=== PATIENT | male | born 1945 | race Caucasian/White ===

== ENCOUNTER 2019-10-05 10:05 | Outpatient (CLI) | payer MEDICARE, SELFPAY ==
[2019-10-05 11:22] LABS: Alanine Aminotransferase 17 U/L (4-50); Albumin Level 4.3 g/dL (3.5-5.1); Alkaline Phosphatase 82 U/L (38-126); Aspartate Amino Transferase 27 U/L (17-59); Bilirubin,Total 0.6 mg/dL (0.2-1.3); Blood Urea Nitrogen 13 mg/dL (9-20); Calcium 9.5 mg/dL (8.4-10.2); Carbon Dioxide 29 mmol/L (22-30); Chloride 100 mmol/L (98-107); Estimated Glomerular Filt Rate > 60; Glucose 97 mg/dL (75-110); Potassium 4.2 mmol/L (3.4-5.0); Sodium 140 mmol/L (137-145)
[2019-10-05 11:53] LABS: Prostate Specific Antigen 1.5 ng/mL (< OR = 4.0)
== END 2019-10-05 10:06 | disposition home or self-care (01) ==
PROVIDERS: PCP Internal Medicine; Visit Provider Internal Medicine
DX: Z12.5 Encounter for screening for malignant neoplasm of prostate (principal); Z13.0 Encounter for screening for diseases of the blood and blood-forming organs and certain disorders involving the immune mechanism; Z13.21 Encounter for screening for nutritional disorder; Z13.228 Encounter for screening for other metabolic disorders; Z13.29 Encounter for screening for other suspected endocrine disorder
CPT/HCPCS: 36415; 80053; 84153; G0103

== ENCOUNTER 2021-02-26 08:28 | Outpatient (CLI) | payer MEDICARE, SELFPAY ==
[2021-02-26 08:59] LABS: Basophils Percent Auto 0.4 % (0.2-1.2); Eosinophils Absolute Auto 0.1 K/mm3 (0-0.3); Hematocrit 39.2 % (42.0-52.0); Immature Platelet Fraction Pct 2.8 % (0.9-11.2); Lymphocytes Percent Auto 35.7 % (18.3-44.2); Mean Corpuscular HGB Conc 33.2 g/dl (32-36); Mean Corpuscular Hemoglobin 32.2 pg (26-34); Monocytes Absolute Auto 0.5 K/mm3 (0.1-0.6); Monocytes Percent Auto 10.1 % (2.6-8.5); Neutrophils Absolute Auto 2.7 K/mm3 (1.3-6.7); Neutrophils Percent Auto 52.8 % (45.5-73.1); Platelet Count Result 124 k/mm3 (150-375); Red Blood Count 4.04 M/mm3 (4.6-6.20); Red Cell Distribution Width 12.9 % (11.5-14.5)
[2021-02-26 09:21] LABS: Alanine Aminotransferase 13 U/L (4-50); Alkaline Phosphatase 77 U/L (38-126); Anion Gap 8 mmol/L (8-16); Aspartate Amino Transferase 27 U/L (17-59); Bilirubin,Total 0.6 mg/dL (0.2-1.3); Blood Urea Nitrogen 14 mg/dL (9-20); Calcium 9.4 mg/dL (8.4-10.2); Carbon Dioxide 27 mmol/L (22-30); Chloride 104 mmol/L (98-107); Cholesterol 154 mg/dL (0-200); Estimated Glomerular Filt Rate 59; Glucose 99 mg/dL (75-110); HDL Direct 52 mg/dL; Sodium 139 mmol/L (137-145); Triglycerides 85 mg/dL (<150)
[2021-02-26 09:31] LABS: LDL Cholesterol Direct 64 mg/dL
[2021-02-26 09:49] LABS: Prostate Specific Antigen 1.3 ng/mL (< OR = 4.0)
== END 2021-02-26 08:29 | disposition home or self-care (01) ==
LOC: ANHLAB 08:30
PROVIDERS: PCP Internal Medicine; Visit Provider Clinical Nurse Specialist
DX: I10 Essential (primary) hypertension (principal); Z13.220 Encounter for screening for lipoid disorders; Z12.5 Encounter for screening for malignant neoplasm of prostate
CPT/HCPCS: 36415; 80053; 80061; 84153; 85025; 85055; G0103

== ENCOUNTER 2021-03-06 08:39 | Outpatient (CLI) | payer MEDICARE, SELFPAY ==
[2021-03-06 08:55] LABS: Basophils Percent Auto 0.3 % (0.2-1.2); Eosinophils Absolute Auto 0.1 K/mm3 (0-0.3); Immature Granulocyte Absolute 0.01 K/mm3 (0.00-0.031); Immature Granulocyte Percent A 0.2 % (0-0.5); Lymphocytes Absolute Auto 1.76 K/mm3 (0.9-3.2); Lymphocytes Percent Auto 28.1 % (18.3-44.2); Mean Corpuscular HGB Conc 33.3 g/dl (32-36); Mean Corpuscular Hemoglobin 32.5 pg (26-34); Mean Corpuscular Volume 97.5 fl (80-100); Mean Platelet Volume 9.6 fl (7.4-10.4); Monocytes Absolute Auto 0.5 K/mm3 (0.1-0.6); Monocytes Percent Auto 7.5 % (2.6-8.5); Neutrophils Percent Auto 62.9 % (45.5-73.1); Platelet Count Result 116 k/mm3 (150-375); White Blood Count 6.3 K/mm3 (4.5-10.0)
[2021-03-06 09:32] LABS: Iron 77 ug/dL (49-181)
[2021-03-06 09:41] LABS: Percent Iron Saturation 27 % (20-50)
== END 2021-03-06 08:40 | disposition home or self-care (01) ==
LOC: ANHLAB 08:41
PROVIDERS: PCP Internal Medicine; Visit Provider Clinical Nurse Specialist
DX: D64.9 Anemia, unspecified (principal)
CPT/HCPCS: 36415; 82728; 83540; 83550; 85025

== ENCOUNTER 2021-04-21 07:34 | Outpatient (CLI) | payer MEDICARE, SELFPAY ==
--- NOTE | ~2021-04-21 | US_ITS ---
EXAMINATION: US abdomen complete EXAM DATE: 04/21/2021 08:21 INDICATION: other secondary thrombocytopenia. TECHNIQUE: Multiple grayscale and Doppler images of the complete abdomen were obtained (by a technolo gist who performed the scan) and subsequently reviewed. There is no prior study for comparison. FINDINGS: The abdominal aorta is normal in caliber. Visualized portion IVC is patent. The pancreatic head a nd body are normal in appearance. The pancreatic tail is not visualized. The liver has normal echogenicity and contour. There are no focal liver lesions identified. There is no evidence of intrahepatic biliary duct dilation. Portal venous flow was seen in the hepatopedal , normal direction and has normal Doppler waveform. Common bile duct measures 2 mm, which is normal. The gallbladder wall is normal in thickness, with ex pected amount of distention. No sonographic evidence of pericholecystic fluid. There is no cholelit hiases. Technologist performing exam reports patient did not demonstrate sonographic Peralta's sign. Please note that this sign is less reliable in patients who have received pain medication. Right kidney: There is normal contour and echogenicity. It measures 9.4 x 5.0 x 4.8 centimeters. T here are no focal renal lesions identified. There is no hydronephrosis. Left kidney: There is normal contour and echogenicity. It measures 10.6 x 4.4 x 4.3 centimeters. Co uple of cysts measuring up to 2 cm in size. There is no hydronephrosis. The spleen measures 9 centimeters and is morphologically normal. IMPRESSION: 1. Unremarkable complete abdominal ultrasound exam. 2. Normal spleen size. Reviewed, dictated and finalized at location D.
[2021-04-21 09:39] LABS: Basophils Percent Auto 0.2 % (0.2-1.2); Eosinophils Absolute Auto 0.1 K/mm3 (0-0.3); Eosinophils Percent Auto 0.9 % (0-4.4); Hematocrit 40.4 % (42.0-52.0); Hemoglobin 13.5 g/dL (14.0-18.0); Immature Granulocyte Absolute 0.02 K/mm3 (0.00-0.031); Immature Granulocyte Percent A 0.4 % (0-0.5); Lymphocytes Absolute Auto 1.52 K/mm3 (0.9-3.2); Lymphocytes Percent Auto 27.3 % (18.3-44.2); Mean Corpuscular HGB Conc 33.4 g/dl (32-36); Mean Corpuscular Hemoglobin 32.6 pg (26-34); Mean Corpuscular Volume 97.6 fl (80-100); Mean Platelet Volume 9.8 fl (7.4-10.4); Monocytes Absolute Auto 0.4 K/mm3 (0.1-0.6); Monocytes Percent Auto 7.9 % (2.6-8.5); Neutrophils Absolute Auto 3.5 K/mm3 (1.3-6.7); Neutrophils Percent Auto 63.3 % (45.5-73.1); Platelet Count Result 160 k/mm3 (150-375); Red Blood Count 4.14 M/mm3 (4.6-6.20); Red Cell Distribution Width 12.6 % (11.5-14.5); White Blood Count 5.6 K/mm3 (4.5-10.0)
[2021-04-21 09:50] LABS: Alanine Aminotransferase 17 U/L (4-50); Albumin Level 4.2 g/dL (3.5-5.1); Alkaline Phosphatase 82 U/L (38-126); Anion Gap 6 mmol/L (8-16); Aspartate Amino Transferase 26 U/L (17-59); Bilirubin,Total 0.7 mg/dL (0.2-1.3); Blood Urea Nitrogen 15 mg/dL (9-20); Calcium 9.4 mg/dL (8.4-10.2); Carbon Dioxide 28 mmol/L (22-30); Chloride 105 mmol/L (98-107); Estimated Glomerular Filt Rate > 60; Glucose 100 mg/dL (65-110); Lactate Dehydrogenase 369 U/L (313-618); Potassium 4.6 mmol/L (3.4-5.0); Sodium 139 mmol/L (137-145)
[2021-04-21 10:29] LABS: Iron 124 ug/dL (49-181)
[2021-04-21 10:40] LABS: Percent Iron Saturation 44 % (20-50)
[2021-04-21 11:05] LABS: Folic Acid > 20.0 ng/mL (2.76->20)
[2021-04-24 14:21] LABS: Platelet Antibody, Direct IgG NEGATIVE (NEGATIVE)
== END 2021-04-21 07:35 | disposition home or self-care (01) ==
PROVIDERS: PCP Internal Medicine; Visit Provider Internal Medicine Hematology & Oncology
DX: D69.59 Other secondary thrombocytopenia (principal)
CPT/HCPCS: 36415; 76700; 80053; 82607; 82728; 82746; 83540; 83550; 83615; 85025; 86023

== ENCOUNTER 2021-06-25 00:16 | Day surgery (SDC) | payer MEDICARE, SELFPAY ==
[2021-06-08 12:40] VITALS: BMI 24.4
--- NOTE | 2021-06-25 06:45 | PM.HPGS ---
History of Present Illness History of Present Illness Consent: Risks, benefits, and alternatives have been discussed and questions answered. Patient agrees to proceed with procedure. Chief complaint: hx of Colon Polyps Narrative: Liu Bocanegra is a 76 year old male Who was referred for colon cancer screening. Nine years ago he had a polyp removed Review of Systems Review of Systems: All systems reviewed & are unremarkable except as noted in HPI and below PMFSH Past Medical History Medical History Colorectal polyp detected on colonoscopy Surgical History Surgical History History of hernia repair x 2 Family History Family History Sibling Patient's sister is in good health Patient's brother is in good health Mother Cerebrovascular accident Father History of heart bypass surgery Arteriolosclerosis Social History Social History Smoking status: Never smoker Tobacco type: cigarettes Smoking end date: 08/22/73 Alcohol intake: current Alcohol use details: rarely Substance use: never Living arrangements: with family Gender identity (if verbalized by the patient): Male Sexual Orientation (if Verbalized by the Patient): Straight or Heterosexual Spiritual care concerns: No Meds Home Medications and Allergies Home Medications Medication Instructions Recorded Confirmed Type multivitamin 1 tablet PO DAILY 07/02/19 06/08/21 History melatonin 5 mg capsule 5 mg PO .PRN cap 03/10/21 06/08/21 History Allergies Allergy/AdvReac Type Severity Reaction Status Date / Time cephalexin Allergy Unknown Rash Verified 06/08/21 12:36 Penicillins Allergy RASH Verified 06/08/21 12:36 Exam Resp: Auscultation: clear to auscultation bilaterally Cardio: Rate: regular rate Rhythm: regular rhythm GI: GI Palp: Yes Soft to palpation and No Tenderness to palpation present (GI) Assessment and Plan Assessment and plan (1) Colon cancer screening: Code(s): Z12.11 - Encounter for screening for malignant neoplasm of colon Status: Acute Assessment and Plan: Colonoscopy with possible biopsy or polypectomy or cautery or injection of substances.
[2021-06-25 10:18] VITALS: BP 126/61; PULSE 64; RESP 18; TEMP 36.5; O2SAT 100
[2021-06-25] MEDS: LACTATED RINGERS 1,000 ML 150 ML IV CONT (10:27)
--- NOTE | 2021-06-25 10:44 | WPDANESEPPF ---
Anes - Initial Pre Proc Eval Procedure: Operation Date: 06/25/21 11:15 Proposed Procedures p Screening Colonoscopy - Antonio Ngo MD Date/Time: 06/25/21 10:44 Surgeon: Antonio Ngo MD Pre Op Diagnosis: hx of Colon Polyps Patient Data Age: 76 Gender: M Height: 1.75 m Weight: 69.6 kg Last Vital Signs Temp 36.5 C 06/25/21 10:18 Pulse 64 06/25/21 10:18 Resp 18 06/25/21 10:18 BP 126/61 06/25/21 10:18 Pulse Ox 100 06/25/21 10:18 Allergies Allergy/AdvReac Type Severity Reaction Status Date / Time cephalexin Allergy Unknown Rash Verified 06/25/21 10:17 Penicillins Allergy RASH Verified 06/25/21 10:17 Home Medications Medication Instructions Recorded Confirmed Type multivitamin 1 tablet PO DAILY 07/02/19 06/08/21 History melatonin 5 mg capsule 5 mg PO .PRN cap 03/10/21 06/08/21 History Patient hx anesthesia problems: none Family hx anesthesia problems: none Results Review: All pre-operative results and documents have been reviewed as part of the pre-operative evaluation. [facility] Past Medical History Medical History (Updated 06/25/21 @ 10:45 by Kevin Martinez MD) Anemia Colorectal polyp detected on colonoscopy Thrombocytopenia Surgical History Surgical History History of hernia repair x 2 Family History Family History Sibling Patient's sister is in good health Patient's brother is in good health Mother Cerebrovascular accident Father History of heart bypass surgery Arteriolosclerosis Social History Social History Smoking status: Never smoker Tobacco type: cigarettes Smoking end date: 08/22/73 Alcohol intake: current Alcohol use details: rarely Substance use: never Living arrangements: with family Gender identity (if verbalized by the patient): Male Sexual Orientation (if Verbalized by the Patient): Straight or Heterosexual Spiritual care concerns: No Anes - Eval Final PreProcedure Day of Procedure 06/25/21 10:44 Patient weight: normal Heart: regular rate and rhythm Lungs: clear to auscultation and normal air movement Airway: Mallampati scale class II Neurological: alert and oriented Last oral intake: >/= 8 hours ASA classification: I Emergent: no Anesthetic plan: proceed Anesthesia type and monitoring: general GIVS Results Review: All pre-operative results and documents have been reviewed as part of the pre-operative evaluation. Informed Consent: The patient's anesthetic plan and its attendant risks and benefits were discussed with the patient/family/POA. Questions were solicited and answers provided to the satisfaction of the patient/family/POA.
[2021-06-25 11:31] VITALS: BP 92/55; PULSE 71; RESP 20; O2SAT 100
[2021-06-25 11:41] VITALS: BP 97/57; PULSE 56; RESP 18; O2SAT 100
[2021-06-25 11:51] VITALS: BP 114/62; PULSE 56; RESP 19; O2SAT 100
--- NOTE | 2021-06-25 12:34 | SUR.PHASEII ---
pts fell in the parking lot when she went to bring car around to pick pt up. she has neuropathy and her shoes came off as she ried to step off the curb. she did not hit her head. picked up with assist of 4 and she was able to get back in the car and pick up. denied any pain, states it was her shoes that made her fall.
== END 2021-06-25 12:34 | disposition home or self-care (01) ==
PROVIDERS: PCP Internal Medicine; Visit Provider Internal Medicine Gastroenterology
PROC: 0DJD8ZZ Inspection of Lower Intestinal Tract, Via Natural or Artificial Opening Endoscopic (ICD-10-PCS; CPT 45378; principal; 2021-06-25 11:15)
DX: Z12.11 Encounter for screening for malignant neoplasm of colon (principal); K57.30 Diverticulosis of large intestine without perforation or abscess without bleeding; Z86.010 Personal history of colon polyps; D64.9 Anemia, unspecified; Z87.891 Personal history of nicotine dependence
CPT/HCPCS: G0105; J2704; J7120

== ENCOUNTER 2021-10-30 09:14 | Outpatient (CLI) | payer MEDICARE, SELFPAY ==
[2021-10-30 09:30] LABS: Basophils Percent Auto 0.4 % (0.2-1.2); Eosinophils Absolute Auto 0.1 K/mm3 (0-0.3); Eosinophils Percent Auto 1.9 % (0-4.4); Hematocrit 41.5 % (42.0-52.0); Hemoglobin 13.2 g/dL (14.0-18.0); Immature Granulocyte Absolute 0.01 K/mm3 (0.00-0.031); Immature Granulocyte Percent A 0.2 % (0-0.5); Lymphocytes Percent Auto 32.3 % (18.3-44.2); Mean Corpuscular HGB Conc 31.8 g/dl (32-36); Mean Corpuscular Hemoglobin 31.8 pg (26-34); Monocytes Absolute Auto 0.5 K/mm3 (0.1-0.6); Monocytes Percent Auto 9.7 % (2.6-8.5); Neutrophils Absolute Auto 2.6 K/mm3 (1.3-6.7); Neutrophils Percent Auto 55.5 % (45.5-73.1); Platelet Count Result 149 k/mm3 (150-375); Red Blood Count 4.15 M/mm3 (4.6-6.20); Red Cell Distribution Width 12.9 % (11.5-14.5); White Blood Count 4.6 K/mm3 (4.5-10.0)
== END 2021-10-30 09:15 | disposition home or self-care (01) ==
LOC: ANHLAB 09:16
PROVIDERS: PCP Internal Medicine; Visit Provider Internal Medicine Hematology & Oncology
DX: D69.59 Other secondary thrombocytopenia (principal)
CPT/HCPCS: 36415; 85025

== ENCOUNTER 2022-03-15 08:39 | Outpatient (CLI) | payer MEDICARE, SELFPAY ==
[2022-03-15 09:53] LABS: Alanine Aminotransferase 22 U/L (6-50); Albumin Level 3.9 g/dL (3.5-5.1); Alkaline Phosphatase 93 U/L (38-126); Anion Gap 7 mmol/L (8-16); Aspartate Amino Transferase 27 U/L (17-59); Bilirubin,Total 0.3 mg/dL (0.2-1.3); Blood Urea Nitrogen 24 mg/dL (9-20); Calcium 9.1 mg/dL (8.4-10.2); Carbon Dioxide 27 mmol/L (22-30); Chloride 104 mmol/L (98-107); Cholesterol 174 mg/dL (0-200); Estimated Glomerular Filt Rate 59; Glucose 101 mg/dL (65-110); HDL Direct 51 mg/dL; Potassium 4.5 mmol/L (3.4-5.0); Sodium 138 mmol/L (137-145); Triglycerides 53 mg/dL (<150)
[2022-03-15 10:03] LABS: LDL Cholesterol Direct 82 mg/dL
[2022-03-15 10:22] LABS: Prostate Specific Antigen 1.2 ng/mL (< OR = 4.0)
== END 2022-03-15 08:40 | disposition home or self-care (01) ==
LOC: ANHLAB 08:42
PROVIDERS: PCP Internal Medicine; Visit Provider Nurse Practitioner
DX: E78.5 Hyperlipidemia, unspecified (principal); Z12.5 Encounter for screening for malignant neoplasm of prostate; Z13.29 Encounter for screening for other suspected endocrine disorder
CPT/HCPCS: 36415; 80053; 80061; 84153; G0103

== ENCOUNTER 2023-05-12 10:41 | Outpatient (CLI) | payer MEDICARE, SELFPAY ==
[2023-05-12 13:57] LABS: Basophils Percent Auto 0.5 % (0.2-1.2); Eosinophils Absolute Auto 0.1 K/mm3 (0-0.3); Eosinophils Percent Auto 1.5 % (0-4.4); Hematocrit 38.9 % (42.0-52.0); Hemoglobin 12.5 g/dL (14.0-18.0); Immature Granulocyte Absolute 0.01 K/mm3 (0.00-0.031); Immature Granulocyte Percent A 0.2 % (0-0.5); Lymphocytes Absolute Auto 1.38 K/mm3 (0.9-3.2); Lymphocytes Percent Auto 23.5 % (18.3-44.2); Mean Corpuscular HGB Conc 32.1 g/dl (32-36); Mean Corpuscular Hemoglobin 31.5 pg (26-34); Mean Platelet Volume 9.3 fl (7.4-10.4); Monocytes Absolute Auto 0.7 K/mm3 (0.1-0.6); Monocytes Percent Auto 11.6 % (2.6-8.5); Neutrophils Absolute Auto 3.7 K/mm3 (1.3-6.7); Neutrophils Percent Auto 62.7 % (45.5-73.1); Platelet Count Result 194 k/mm3 (150-375); Red Blood Count 3.97 M/mm3 (4.6-6.20); Red Cell Distribution Width 11.9 % (11.5-14.5); White Blood Count 5.9 K/mm3 (4.5-10.0)
[2023-05-12 14:00] LABS: Alanine Aminotransferase 18 U/L (6-50); Albumin Level 4.1 g/dL (3.5-5.1); Alkaline Phosphatase 91 U/L (38-126); Anion Gap 3 mmol/L (8-16); Aspartate Amino Transferase 41 U/L (17-59); Bilirubin,Total 0.4 mg/dL (0.2-1.3); Blood Urea Nitrogen 21 mg/dL (9-20); Calcium 9.3 mg/dL (8.4-10.2); Carbon Dioxide 31 mmol/L (22-30); Chloride 104 mmol/L (98-107); Cholesterol 179 mg/dL (0-200); Estimated Glomerular Filt Rate > 60; Glucose 103 mg/dL (65-110); HDL Direct 37 mg/dL; Potassium 4.7 mmol/L (3.4-5.0); Sodium 138 mmol/L (137-145); Triglycerides 90 mg/dL (<150)
[2023-05-12 14:11] LABS: LDL Cholesterol Direct 106 mg/dL
[2023-05-13 18:12] LABS: Prostate Specific Antigen 1.9 ng/mL (< OR = 4.0)
== END 2023-05-12 10:42 | disposition home or self-care (01) ==
LOC: ANHGOSHLAB 10:43
PROVIDERS: PCP Internal Medicine; Visit Provider Nurse Practitioner
DX: E78.5 Hyperlipidemia, unspecified (principal); Z13.29 Encounter for screening for other suspected endocrine disorder; Z12.5 Encounter for screening for malignant neoplasm of prostate; D64.9 Anemia, unspecified; D69.6 Thrombocytopenia, unspecified
CPT/HCPCS: 36415; 80053; 80061; 84153; 85025; G0103

== ENCOUNTER 2024-05-22 11:28 | Outpatient (CLI) | payer MEDICARE, SELFPAY ==
[2024-05-22 14:11] LABS: Basophils Percent Auto 0.4 % (0.2-1.2); Eosinophils Absolute Auto 0.1 K/mm3 (0-0.3); Eosinophils Percent Auto 1.3 % (0-4.4); Hematocrit 41.5 % (42.0-52.0); Hemoglobin 13.9 g/dL (14.0-18.0); Immature Granulocyte Absolute 0.01 K/mm3 (0.00-0.031); Immature Granulocyte Percent A 0.2 % (0-0.5); Immature Platelet Fraction Pct 2.7 % (0.9-11.2); Lymphocytes Absolute Auto 1.69 K/mm3 (0.9-3.2); Mean Corpuscular HGB Conc 33.5 g/dl (32-36); Mean Corpuscular Hemoglobin 33.3 pg (26-34); Mean Corpuscular Volume 99.5 fl (80-100); Mean Platelet Volume 10.3 fl (7.4-10.4); Monocytes Absolute Auto 0.5 K/mm3 (0.1-0.6); Monocytes Percent Auto 9.5 % (2.6-8.5); Neutrophils Absolute Auto 3.2 K/mm3 (1.3-6.7); Neutrophils Percent Auto 57.6 % (45.5-73.1); Platelet Count Result 136 k/mm3 (150-375); Red Blood Count 4.17 M/mm3 (4.6-6.20); Red Cell Distribution Width 12.9 % (11.5-14.5); White Blood Count 5.5 K/mm3 (4.5-10.0)
[2024-05-22 14:17] LABS: Alanine Aminotransferase 22 U/L (6-50); Albumin Level 4.3 g/dL (3.5-5.1); Alkaline Phosphatase 82 U/L (38-126); Anion Gap 9 mmol/L (4-12); Aspartate Amino Transferase 55 U/L (17-59); Bilirubin,Total 0.6 mg/dL (0.2-1.3); Blood Urea Nitrogen 26 mg/dL (9-20); Calcium 9.4 mg/dL (8.4-10.2); Carbon Dioxide 27 mmol/L (22-30); Chloride 103 mmol/L (98-107); Estimated Glomerular Filt Rate 59; Glucose 92 mg/dL (65-110); Potassium 4.3 mmol/L (3.4-5.0); Sodium 139 mmol/L (137-145)
[2024-05-22 16:32] LABS: Prostate Specific Antigen 1.5 ng/mL (< OR = 4.0)
== END 2024-05-22 11:29 | disposition home or self-care (01) ==
PROVIDERS: PCP Nurse Practitioner; Visit Provider Nurse Practitioner
DX: Z12.5 Encounter for screening for malignant neoplasm of prostate (principal); K63.5 Polyp of colon; Z13.29 Encounter for screening for other suspected endocrine disorder
CPT/HCPCS: 36415; 80053; 84153; 85025; 85055; G0103

== ENCOUNTER 2025-06-03 11:31 | Outpatient (CLI) | payer MEDICARE, SELFPAY ==
--- OUTSIDE RECORDS SUMMARY | 2025-06-03 12:54 | XMS_ITS | Clinical Summary ---
Author Organization [facility] Address [address] [place] [address] Care Team Providers Care Jewelry Internship Name Role Phone Troy Romeo DO Primary Care Provider Allergies Active Allergy Reactions Criticality Noted Date Comments Cephalexin Rash Medium 04/09/2016 Penicillins Rash Medium 04/09/2016 Medications ketoconazole (NIZORAL) 2 % Cream Apply to sides of mouth twice daily until clear for 1 week. 30 days supply. 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 Family History Medical History Relation Name Comments Heart Disease Father Relation Name Status Comments Brother Alive Daughter 1 Alive Daughter 2 Alive Father Mother Sister 1 Alive Sister 2 Alive Sister 3 Alive Sister 4 Alive Social History Tobacco Use Types Packs/Day Years Used Date Smoking Tobacco: Never Smokeless Tobacco: Never Alcohol Use Standard Drinks/Week Comments Yes 0 (1 standard drink = 0.6 oz pur e alcohol) Sex and Gender Information Value Date Recorded Sex Assigned at Not on file Legal Sex Male 2:39 PM CDT Gender Identity Not on file Sexual Orientation Not on file Last Filed Vital Signs Vital Sign Reading Time Taken Comments Blood Pressure 126/71 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 Pulse 56 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 Temperature 36.2 C (97.2 F) 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 Respiratory Rate - - Oxygen Saturation 98% 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 Inhaled Oxygen Concentration - - Weight 67.5 kg (148 lb 12.8 oz) 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 Height 175.3 cm (5' 9) 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 Body Mass Index 21.97 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 Plan of Treatment Health Maintenance Due Date Last Done Comments DTAP/TDAP/TD VACCINES (1 - Tdap) 1965 PNEUMOCOCCAL VACCINE 50+ YEARS (1 of 1 - PCV) 05/25/19 96 ZOSTER VACCINE (1 of 2) 1996 RSV VACCINE (60+ or ) (1 - 1-dose 75+ series) 2021 INFLUENZA VACCINE (#1) 2025 Insurance [facility] [id number] Member Subscriber Plan / Payer (Ef fective 2021-Present) Name:Liu Bocanegra Relation to Subscriber:Self Name:Liu Bocanegra Payer ID:[id number] (NAIC) Type:HMO Address: [place] [id number] Care Teams Jewelry Internship Relationship Specialty Start Date End Date Troy Romeo DO [address] [place] [address] [address] PCP - General Internal Medicine 04/07/21
--- OUTSIDE RECORDS SUMMARY | 2025-06-03 12:54 | XMS_ITS | Clinical Summary ---
Author Organization [facility] [address] Address [address] [place] [address] Care Team Providers Care Broomcorn Seeder Name Role Phone Troy Romeo DO Primary Care Provider Social History Tobacco Use Types Packs/Day Years Used Date Smoking Tobacco: Never Assessed Personal Safety Answer Date Recorded Getting School Help Needed Not on file 11/05 Sex and Gender Information Value Date Recorded Sex Assigned at Not on file Legal Sex Male 4:03 PM CDT Gender Identity Not on file Sexual Orientation Not on file Plan of Treatment Not on file Insurance [facility] MEDICARE [facility] MEDIC[facility] Address: [address] [address] Care Teams Broomcorn Seeder Relationship Specialty Start Date End Date Troy Romeo DO PCP - General Internal Medicine 05/26/17
--- OUTSIDE RECORDS SUMMARY | 2025-06-03 12:54 | XMS_ITS | Clinical Summary ---
Author Organization [facility] Address [address] [place] [address] Care Team Providers Care Brick Dropper Name Role Phone Troy Romeo DO Primary Care Provider Source Comments [facility],non-owned Affiliates and Associated Physician Practices is amultiple site organization consisting of ambulatory clinics and hospital sitesin [place], [place], [place] and [place]. This disclosure is being madepursuant to the Care Everywhere program and may not contain all information available regarding this patient. Last updated 18.[facility] Allergies Active Allergy Reactions Criticality Noted Date Comments Cephalexin Rash Medium 04/09/2016 Penicillins Rash Medium 04/09/2016 Medications * Be aware that medications may not be up to date on this document. Alwaysverify current medications with the patient. ketoconazole (NIZORAL) 2 % creamIndications :Angular cheilitis Apply to sides of mouth twice daily until clear for 1 week. 30 days supply. 30 g 1 01/30/2021 Active Active Problems Problem Noted Date Diagnosed Date Other seborrheic keratosis 01/30/2021 Assessment & Plan (01/30/2021 1:18 PM CDT): - Benign, reassured patient Multiple benign melanocytic nevi of upper extremity, lower extremity, and trunk 01/30/2021 Assessment & Plan (01/30/2021 1:17 PM CDT): - Benign, reassured patient - Reviewed the importance of sun protection (including sunscreen, wearing hats, minimizing sun exposure) - Reviewed ABCDEs for moles Angular cheilitis 05/09/2018 Assessment & Plan (01/30/2021 1:17 PM CDT): - Improved from prior - Recommend continuing keto cream daily PRN for flares Traumatic avulsion of nail plate of finger 05/09 History of actinic keratoses 05/09/2018 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 Recommend starting Differin nightly if desired - Marker of UVR damage with increased risk of sin cancer - Advised routine skin cancer monitoring - Recommend daily OTC sunscreen use with SPF >30, broad spectrum Actinic keratosis 04/09/2016 Assessment & Plan (01/30/2021 1:17 PM CDT): - Counseled on diagnosis, etiology, natural disease course- including pre- malignant nature of lesions and association with sun exposure - 1 AK treated today with LN2 - Wound care instructions provided - Counseled on importance of daily sun protection (SPF 30+, UVA/UVB) and monthly self skin exams Neoplasm of uncertain behavior of skin 6 Family History Medical History Relation Name Comments Cancer - Skin, Melanoma Neg Hx Cancer - Skin, Non Melanoma Neg Hx Social History Tobacco Use Types Packs/Day Years Used Date Smoking Tobacco: Former Smokeless Tobacco: Never Alcohol Use Standard Drinks/Week Comments No 0 (1 standard drink = 0.6 oz pur e alcohol) Sex and Gender Information Value Date Recorded Sex Assigned at Not on file 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 Gender Identity Not on file Sexual Orientation Not on file Plan of Treatment Health Maintenance Due Date Last Done Comments HEPATITIS C SCREENING 05/20/1964 DTAP/TDAP/TD VACCINES (1 - Tdap) 1965 PNEUMOCOCCAL VACCINE 50+ (1 of 1 - PCV) 1996 ZOSTER VACCINE (1 of 2) 1996 Respiratory Syncytial Virus (RSV) Vaccine Pt: or over 60 yrs (1 - 1-dose 75+ series) 2021 DEPRESSION SCREENING 08/22/2024 COVID-19 VACCINE ( - 2023-2 5 season) 2025 INFLUENZA VACCINE (#1) 2025 HEPATITIS B VACCINE Aged Out No longe r eligible based on patient's age to complete this topic HIB VACCINE Aged Out No longer eligi ble based on patient's age to complete this topic HPV VACCINE Aged Out No longer eligi ble based on patient's age to complete this topic MENINGOCOCCAL (Group B) VACC INE SHARED DECISION-MAKING Aged Out No longer eligibl e based on patient's age to complete this topic MENINGOCOCCAL GROUPS A/C/Y/W VACCINE Aged Out No longer eligible b ased on patient's age to complete this [place] [address] [place] [address] [facility] MEDICARE [address] [id number] Care Teams Brick Dropper Relationship Specialty Start Date End Date Troy Romeo DO PCP - General 03/08/16
[2025-06-03 12:59] LABS: Hematocrit 42.8 % (42.0-52.0); Hemoglobin 13.8 g/dL (14.0-18.0); Immature Granulocyte Percent A 0.3 % (0-0.5); Lymphocytes Absolute Auto 1.31 K/mm3 (0.9-3.2); Mean Corpuscular HGB Conc 32.2 g/dl (32-36); Mean Corpuscular Hemoglobin 31.7 pg (26-34); Mean Corpuscular Volume 98.4 fl (80-100); Nucleated Red Blood Cells Absolute Auto 0.000 K/mm3 (0.0-0.012); Nucleated Red Blood Cells Perc 0.0 % (0.0-0.2); Platelet Count Result 163 k/mm3 (150-375); Red Blood Count 4.35 M/mm3 (4.6-6.20); White Blood Count 6.3 K/mm3 (4.5-10.0)
[2025-06-03 13:13] LABS: Alanine Aminotransferase 21 U/L (6-50); Albumin Level 4.3 g/dL (3.5-5.1); Alkaline Phosphatase 85 U/L (38-126); Anion Gap 6 mmol/L (4-12); Aspartate Amino Transferase 39 U/L (17-59); Bilirubin,Total 0.6 mg/dL (0.2-1.3); Blood Urea Nitrogen 18 mg/dL (9-20); Calcium 9.3 mg/dL (8.4-10.2); Carbon Dioxide 28 mmol/L (22-30); Chloride 104 mmol/L (98-107); Cholesterol 184 mg/dL (0-200); Estimated Glomerular Filt Rate 60; Glucose 100 mg/dL (65-110); HDL Direct 54 mg/dL; Potassium 4.9 mmol/L (3.4-5.0); Sodium 138 mmol/L (137-145); Total Protein 7.8 g/dL (6.3-8.2); Triglycerides 107 mg/dL (<150)
[2025-06-03 13:50] LABS: Prostate Specific Antigen 1.8 ng/mL (< OR = 4.0)
== END 2025-06-03 11:32 | disposition home or self-care (01) ==
LOC: ANHGOSHLAB 11:32
DX: Z12.5 Encounter for screening for malignant neoplasm of prostate (principal); D64.89 Other specified anemias; D69.6 Thrombocytopenia, unspecified; Z13.29 Encounter for screening for other suspected endocrine disorder; Z13.0 Encounter for screening for diseases of the blood and blood-forming organs and certain disorders involving the immune mechanism; Z13.228 Encounter for screening for other metabolic disorders; E78.5 Hyperlipidemia, unspecified; E55.9 Vitamin D deficiency, unspecified; Z82.49 Family history of ischemic heart disease and other diseases of the circulatory system
CPT/HCPCS: 36415; 80053; 80061; 82172; 82306; 84153; 85025; G0103

== ENCOUNTER 2025-06-14 14:31 | Outpatient (CLI) | payer MEDICARE, SELFPAY ==
--- NOTE | ~2025-06-14 | XR_ITS ---
EXAMINATION: XR chest 2V, 06/14/2025 14:38 CDT HISTORY: Chest pain while doing activity for 1 year COMPARISON: No comparisons available. Technique: 2 views obtained. Findings: The lungs are clear, no effusion. No pneumothorax. Heart is normal size. Mediastinal and hilar contours are within normal limits. Bony thorax no acute abnormality. Impression: No acute cardiopulmonary abnormality. Reviewed, dictated and finalized at location P. Impression: No acute cardiopulmonary abnormality.
== END 2025-06-14 14:32 | disposition home or self-care (01) ==
LOC: GOSHIMG 14:32
DX: R07.9 Chest pain, unspecified (principal)
CPT/HCPCS: 71046

== ENCOUNTER 2025-06-14 15:38 | Outpatient (CLI) | payer MEDICARE, SELFPAY ==
--- NOTE | ~2025-06-14 | CT_ITS ---
CTA chest HISTORY:R07.9 - Chest pain, unspecified . COMPARISON: None. TECHNIQUE: Following the noncontrasted teaching assistant, axial images of the thorax were obtained following infusion of 100 cc of Isovue 370. Post-processing on an independent workstation was performed to reconstruct MIP images for evaluation of the thoracic vasculature. FINDINGS: There is no pulmonary embolism, aortic dissection, thoracic aneurysm or pericardial fluid. The lung parenchyma is clear. No pleural effusion or pneumothorax is noted. There is no axillary, mediastinal or hilar adenopathy. Limited evaluation of the upper abdomen demonstrates no gross abnormalities. Review of bone windows demonstrates no osteoblastic or lytic lesions. IMPRESSION: There is no pulmonary embolism, aortic dissection, pericardial fluid or thoracic aneurysm. No acute lung findings. All CT scans at this facility are performed using low dose modulation techniques as appropriate to perform exam including the following: automated exposure control; use of iterative reconstruction technique; adjustment of the mA and/or kV according to patient size (this includes techniques or standardized protocols for targeted exams where dose is matched to indication/reason for exam). Reviewed, dictated and finalized at location S. IMPRESSION: There is no pulmonary embolism, aortic dissection, pericardial fluid or thoraci c aneurysm. No acute lung findings. All CT scans at this facility are performed using low dose modulation techniqu es as appropriate to perform exam including the following: automated exposure c ontrol; use of iterative reconstruction technique; adjustment of the mA and/or kV according to patient size (this includes techniques or standardized protocol s for targeted exams where dose is matched to indication/reason for exam).
--- OUTSIDE RECORDS SUMMARY | 2025-06-14 15:41 | XMS_ITS | Clinical Summary ---
Author Organization [facility] Address [address] [facility] [place] [address] Care Team Providers Care Adult School Teacher Name Role Phone Troy Romeo DO Primary Care Provider Source Comments [facility],non-owned Affiliates and Associated Physician Practices is amultiple site organization consisting of ambulatory clinics and hospital sitesin [place], [place], [place] and [place]. This disclosure is being madepursuant to the Care Everywhere program and may not contain all information available regarding this patient. Last updated 18.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
--- OUTSIDE RECORDS SUMMARY | 2025-06-14 15:42 | XMS_ITS | Clinical Summary ---
Author Organization [facility] [address] Address [address] [place] [address] Care Team Providers Care Almond Blancher Hand Name Role Phone Troy Romeo DO Primary [...] Plan of Treatment Not on file Insurance [facility] MEDICARE ADVANTAGE [facility] MEDIC[facility] Address: [address] [address] Care Teams Almond Blancher Hand Relationship Specialty Start Date End Date Troy Romeo DO PCP - General Internal Medicine 05/26/17
[2025-06-14 16:09] LABS: Estimated Glomerular Filt Rate 49
== END 2025-06-14 15:39 | disposition home or self-care (01) ==
DX: R07.9 Chest pain, unspecified (principal)
CPT/HCPCS: 71275; Q9967

== ENCOUNTER 2025-06-18 09:43 | Outpatient (CLI) | payer MEDICARE, SELFPAY ==
--- NOTE | ~2025-06-18 | NM_ITS ---
EXAMINATION: NM stress w perf spect multi DATE: 06/18/2025 12:51 INDICATION: Chest pain. TECHNIQUE: Rest images were obtained following intravenous administration of 10.5 mCi Tc99m tetrofosmin (Myoview). The patient performed an exercise activity. At peak exercise, 32.3 mCi Tc99m tetrofosmin (Myoview) was administered intravenously, and supine and prone stress images were obtained. Data was reconstructed into short axis and horizontal and vertical long axis SPECT images. Gated SPECT images were also obtained. COMPARISON: Chest CT 06/14/2025 FINDINGS: There is a large, severe, partially reversible perfusion defect involving left ventricular apex, inferior wall, inferolateral wall, and anterolateral wall, consistent with mixed infarct and ischemia. There is no segmental wall motion abnormality. Left ventricular ejection fraction measures 57%. IMPRESSION: 1. 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 2. Normal left ventricular ejection fraction measuring 57%. Reviewed, dictated and finalized at location E. IMPRESSION: 1. 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 CT demonstrate s myocardial thinning and subendocardial fat in this distribution suggesting th at at least much of the infarct component is chronic. 2. Normal left ventricular ejection fraction measuring 57%.
--- NOTE | 2025-06-18 09:47 | EST_ITS ---
Patient Info Name: Liu Bocanegra Age: 80 years : 1945 Gender: Male Ht: 68 in Wt: 162 lbs BSA: 1.89 m2 HR: 48 bpm BP: 121 / 69 mmHg Exam Date: 06/18/2025 9:47 AM Patient Status: O Admit Date: 06/18/2025 Exam Type: CA stress test treadmill w NM A nuclear stress test was performed. Staff Referring Physician: Arely Ng Attending Provider: Arely Ng Exercise Technologist: Arely Rosales Exercise Physician: Devendra Hernandez DO Summary 1. 1. Negative Paco exercise stress test for ischemic ST changes by ECG criteria. 2. 2. Reduced functional capacity, achieving 6.5 METs of workload. 3. 3. Appropriate HR response to exercise. 4. 4. Appropriate HR recovery at 1 minute post exercise. 5. 5. Nuclear scan to follow and will be reported separately. Please correlate with it. 6. 6. Patient informed of the above results. Protocol: Paco Stress ECG Details Stage: REST Duration (min): 1 min : 44 sec Speed (mph): 0.0 Grade (%): 0 HR (bpm): 48 SBP (mmHg): 121 DBP (mmHg): 69 METS: --- Stage: REST Duration (min): 10 min : 17 sec Speed (mph): 0.0 Grade (%): 0 HR (bpm): 53 SBP (mmHg): 121 DBP (mmHg): 69 METS: --- Stage: STAGE 1 Duration (min): 1 min : 0 sec Speed (mph): 1.7 Grade (%): 10 HR (bpm): 81 SBP (mmHg): 121 DBP (mmHg): 69 METS: --- Stage: STAGE 1 Duration (min): 2 min : 0 sec Speed (mph): 1.7 Grade (%): 10 HR (bpm): 102 SBP (mmHg): 121 DBP (mmHg): 69 METS: --- Stage: STAGE 1 Duration (min): 3 min : 0 sec Speed (mph): 1.7 Grade (%): 10 HR (bpm): 118 SBP (mmHg): 122 DBP (mmHg): 70 METS: --- Stage: STAGE 2 Duration (min): 1 min : 0 sec Speed (mph): 2.5 Grade (%): 12 HR (bpm): 128 SBP (mmHg): 122 DBP (mmHg): 70 METS: --- Stage: STAGE 2 Duration (min): 1 min : 0 sec Speed (mph): 2.5 Grade (%): 12 HR (bpm): 128 SBP (mmHg): 122 DBP (mmHg): 70 METS: --- Stage: RECOVERY Duration (min): 0 min : 59 sec Speed (mph): 0.0 Grade (%): 0 HR (bpm): 121 SBP (mmHg): 124 DBP (mmHg): 66 METS: --- Stage: RECOVERY Duration (min): 1 min : 59 sec Speed (mph): 0.0 Grade (%): 0 HR (bpm): 100 SBP (mmHg): 124 DBP (mmHg): 66 METS: --- Stage: RECOVERY Duration (min): 2 min : 59 sec Speed (mph): 0.0 Grade (%): 0 HR (bpm): 84 SBP (mmHg): 162 DBP (mmHg): 71 METS: --- Stage: RECOVERY Duration (min): 3 min : 59 sec Speed (mph): 0.0 Grade (%): 0 HR (bpm): 77 SBP (mmHg): 162 DBP (mmHg): 71 METS: --- Stage: RECOVERY Duration (min): 4 min : 59 sec Speed (mph): 0.0 Grade (%): 0 HR (bpm): 77 SBP (mmHg): 165 DBP (mmHg): 81 METS: --- Stage: RECOVERY Duration (min): 5 min : 2 sec Speed (mph): 0.0 Grade (%): 0 HR (bpm): 76 SBP (mmHg): 165 DBP (mmHg): 81 METS: --- Rest HR: 53 bpm Peak HR: 128 bpm Rest Sys BP: 121 mmHg Peak Sys BP: 165 mmHg Max Pred HR: 141 bpm % Max Pred HR: 91 % Target HR: 120 bpm Max RPP: 21,120 bpm*mmHg Sullivan Score: -8 Termination Reason: Reached target heart rate or workload Cardiac Symptoms: Shortness of breath Max ST Seg Deviation: 2.40 mm Total Time: 4 min : 0 sec Rest Soares BP: 69 mmHg Peak Soares BP: 81 mmHg Angina Score: None Total METS: 6.5 Resting ECG Sinus bradycardia, ST-T wave abnormality in inf/lat leads- consider ischemia. Stress ECG ST deviation resolved with exercise. Arrhythmias None. Report Signatures
--- OUTSIDE RECORDS SUMMARY | 2025-06-18 10:47 | XMS_ITS | Clinical Summary ---
Author Organization [facility] [address] Address [address] [place] [address] Care Team Providers Care Maid Supervisor Name Role Phone Troy Romeo DO Primary [...] Plan of Treatment Not on file Insurance [facility] MEDICARE ADVANTAGE [facility] MEDIC[facility] Address: [address] [address] Care Teams Maid Supervisor Relationship Specialty Start Date End Date Troy Romeo DO PCP - General Internal Medicine 05/26/17
--- OUTSIDE RECORDS SUMMARY | 2025-06-18 10:47 | XMS_ITS | Clinical Summary ---
Author Organization [facility] Sharron Coppolashabbir Address [address] [place] [address] Care Team Providers Care News Assistant Name Role Phone Troy Romeo DO Primary [...] Comments Blood Pressure 126/71 10/30/2021 9:33 AM CREDIT UNION EXAMINER Pulse 56 10/30/2021 9:33 AM CREDIT UNION EXAMINER Temperature 36.2 C (97.2 F) 10/30/2021 9:33 AM CREDIT UNION EXAMINER Respiratory Rate - - Oxygen Saturation 98% 10/30/2021 9:33 AM CREDIT UNION EXAMINER Inhaled Oxygen Concentration - - Weight 67.5 kg (148 lb 12.8 oz) 10/30/2021 9:33 AM CREDIT UNION EXAMINER Height 175.3 cm (5' 9) 10/30/2021 9:33 AM CREDIT UNION EXAMINER Body Mass Index 21.97 10/30/2021 9:33 AM CREDIT UNION EXAMINER Plan of Treatment Health Maintenance Due Date Last Done Comments DTAP/TDAP/TD VACCINES (1 - Tdap) 1964 PNEUMOCOCCAL VACCINE 50+ YEARS (1 of 1 - PCV) 05/25/19 96 ZOSTER VACCINE (1 of 2) 1996 RSV VACCINE (60+ or ) (1 - 1-dose 75+ series) 2021 INFLUENZA VACCINE (#1) 2025 Insurance [facility] [id number] Member Subscriber Plan / Payer (Ef fective 2021-Present) Name:Liu Bocanegra Relation to Subscriber:Self Name:Liu Bocanegra Payer ID:[id number] (NAIC) Type:HMO Address: [place] [phone] Care Teams News Assistant Relationship Specialty Start Date End Date Troy Romeo DO [address] [address] PCP - General Internal Medicine 04/07/21
== END 2025-06-18 09:44 | disposition home or self-care (01) ==
DX: R07.9 Chest pain, unspecified (principal)
CPT/HCPCS: 78452; 93017; A9502

== ENCOUNTER 2025-07-01 07:47 | Outpatient (CLI) | payer MEDICARE, SELFPAY ==
--- OUTSIDE RECORDS SUMMARY | 2007-03-24 02:56 | XMS_ITS | Continuity of Care Document ---
Author Organization Formerly [facility] Address [address] [place] [address] utive [facility] [address] [place] [address] Phone Care Team Providers Care Safemaker Name Role Phone Jessica Cordero Unavailable Unavailable Procedures Procedure Date Remove Eyelid Lesion Advance Directives Directive Yes / No Effective Date File Name No Information Encounters Encounter Description Practice Location Reason(s) For Visit Diagnoses Date Provider Providers Copied on Encounter [facility], [address] [place] [address] [address], [place], [place], [id number], tel:[phone] [facility] No Information [address] [facility] [address] [place] [address], [place], [place], [facility], . tel:[phone] Referring Provider: Katerin Jordan [facility] [place] [address], [place], [place], [facility]. tel:[phone] Family History Family Member Type Diagnosis Age At Onset No Information Payers Payer name Insurance type Covered republican ID Authoriza tion(s) No Information Social History Type Description Quantity Date Captured Comments Sex Male Smoking Status No Information Chief Complaint And Reason For Visit No Information Reason For Referral Reason For Referral No Information History Of Present Illness Encounter Date Complaint History Of Prese nt Illness No Information Functional Status Date Functional Assessmen t No Information Instructions Date Instruction Additional Infor mation No Information Assessments Type Assessment Date No Information Patient Care Teams Name Effective Dates (start - stop) Status Members No Information
--- OUTSIDE RECORDS SUMMARY | 2025-07-01 07:51 | XMS_ITS | Clinical Summary ---
Author Organization [facility] Address [address] [place] [address] Care Team Providers Care Shop Mechanic Name Role Phone Troy Romeo DO Primary Care Provider [phone] Social History Tobacco Use Types Packs/Day Years Used Date Smoking Tobacco: Never Assessed Sex and Gender Information Value Date Recorded Sex Assigned at Not on file Legal Sex Male 10:29 AM CREW TRAINER Gender Identity Not on file Sexual Orientation Not on file Plan of Treatment Upcoming Encounters Date Type Department Care Team (Late st Contact Info) Description 07/03/2025 8:15 AM CREW TRAINER Appointment [facility] [address] [place] [address] Umberto Reid MD [address] [place] [id number] Health Maintenance Due Date Last Done Comments Hepatitis C 1963 DTaP, Tdap and Td Vaccines ( 1 - Tdap) 1965 Pneumococcal Vaccine: 50+ Ye ars (1 of 1 - PCV) 1996 Zoster Vaccines (1 of 2) 1996 RSV Immunization or 60+ Years (1 - 1-dose 75+ series) 2021 COVID-19 Vaccine ( - 2024-2 6 season) 2025 Influenza Adult (#1) 2025 Hepatitis A Vaccines Aged Out No long er eligible based on patient's age to complete this topic Meningococcal B Vaccine Aged Out No l onger eligible based on patient's age to complete this topic Meningococcal Vaccine Aged Out No estefany fito eligible based on patient's age to complete this topic RSV Immunizations Under 20 Months Aged Out No longer eligible based on patient's age to complete this topic Insurance [facility] Care Teams Shop Mechanic Relationship Specialty Start Date End Date Troy Romeo DO [address] [facility] [address] [place] [address] PCP - General INTERNAL MEDICINE 06/27/25
--- OUTSIDE RECORDS SUMMARY | 2025-07-01 07:51 | XMS_ITS | Clinical Summary ---
Author Organization [facility] Address [address] [facility] [place] [address] Care Team Providers Care Site Promotion Agent Name Role Phone Troy Romeo DO Primary Care Provider Source Comments [facility],non-owned Affiliates and Associated Physician Practices is amultiple site organization consisting of ambulatory clinics and hospital sitesin [place], [place], [place] and [place]. This disclosure is being madepursuant to the Care Everywhere program and may not contain all information available regarding this patient. Last updated 18.[facility] Allergies Active Allergy Reactions Criticality Noted Date [...] on file Legal Sex Male 5:30 PM CONCRETE MASON Gender Identity Not on file Sexual Orientation [...] to complete this [place] [address] [facility] MEDICARE ADV [place] [id number] Care Teams Site Promotion Agent Relationship Specialty Start Date End Date Troy Romeo DO PCP - General 03/08/16
--- OUTSIDE RECORDS SUMMARY | 2025-07-01 07:51 | XMS_ITS | Clinical Summary ---
Author Organization [facility]3] Sharron Coppolashabbir Address [address] [place] [address] Care Team Providers Care Atv Mechanic Name Role Phone Troy Romeo DO [...] Comments Blood Pressure 126/71 10/30/2021 9:33 AM DEPARTMENT OF SOCIOLOGY CHAIR Pulse 56 10/30/2021 9:33 AM DEPARTMENT OF SOCIOLOGY CHAIR Temperature 36.2 C (97.2 F) 10/30/2021 9:33 AM DEPARTMENT OF SOCIOLOGY CHAIR Respiratory Rate - - Oxygen Saturation 98% 10/30/2021 9:33 AM DEPARTMENT OF SOCIOLOGY CHAIR Inhaled Oxygen Concentration - - Weight 67.5 kg (148 lb 12.8 oz) 10/30/2021 9:33 AM DEPARTMENT OF SOCIOLOGY CHAIR Height 175.3 cm (5' 9) 10/30/2021 9:33 AM DEPARTMENT OF SOCIOLOGY CHAIR Body Mass Index 21.97 10/30/2021 9:33 AM DEPARTMENT OF SOCIOLOGY CHAIR Plan of Treatment Health Maintenance Due Date Last Done Comments DTAP/TDAP/TD VACCINES (1 - Tdap) 1965 PNEUMOCOCCAL VACCINE 50+ YEARS (1 of 1 - PCV) 05/25/19 96 ZOSTER VACCINE (1 of 2) 1996 RSV VACCINE (60+ or ) (1 - 1-dose 75+ series) 2021 INFLUENZA VACCINE (#1) 2025 Insurance [facility] [id number] Member Subscriber Plan / Payer (Ef fective 2021-Present) Name:Liu Bocanegra Relation to Subscriber:Self Name:Liu Bocanegra Payer ID:[id number] (NAIC) Type:HMO Address: [place] [phone] Care Teams Atv Mechanic Relationship Specialty Start Date End Date Troy Romeo DO [address] [address] PCP - General Internal Medicine 04/07/21
--- OUTSIDE RECORDS SUMMARY | 2025-07-01 07:51 | XMS_ITS | Clinical Summary ---
Author Organization [facility] [address] Address [address] [place] [address] Care Team Providers Care Marionette Performer Name Role Phone Troy Romeo Primary Care Provider Encounters Date Type Department Care Team Description 06/26/2025 Telephone [facility] Cardiology [address] [place] [address] Juanpablo Alex MD from Last 3 Months Social History Tobacco Use Types Packs/Day Years Used Date Smoking Tobacco: Never Assessed Personal Safety Answer Date Recorded Getting School Help Needed Not on file 11/05 Sex and Gender Information Value Date Recorded Sex Assigned at Not on file Legal Sex Male 4:03 PM CDT Gender Identity Not on file Sexual Orientation Not on file Plan of Treatment Not on file Insurance [facility]IC[facility] Address: [address] [address] [place] [address] Care Teams Marionette Performer Relationship Specialty Start Date End Date Troy Romeo DO PCP - General Internal Medicine 05/26/17
--- NOTE | 2025-07-01 08:03 | ECHO_ITS ---
Patient Info Name: Liu Bocanegra Age: 80 years : 1945 Gender: Male Ht: 68 in Wt: 162 lbs BSA: 1.89 m2 HR: 58 bpm BP: 118 / 66 mmHg Heart Rhythm: Sinus Rhythm Technical Quality: Fair Exam Date: 07/01/2025 8:10 AM Patient Status: O Admit Date: 07/01/2025 Exam Type: CA echo doppler color flow Complete two-dimensional, color flow and Doppler transthoracic echocardiogram is performed. Behavioral Instructor: Arely Rosales Attending Provider: Arely Ng Summary 1. Complete two-dimensional, color flow and Doppler transthoracic echocardiogram is performed. 2. Left ventricular chamber dimension is normal. 3. Left ventricular systolic function is normal, estimated at 60-65. 4. The left ventricular diastolic function is grade I diastolic dysfunction. 5. E/e' 12 is mildly elevated. 6. Left atrial chamber dimension is moderately enlarged. 7. There is mild aortic valve sclerosis. 8. There is mild mitral valve regurgitation. 9. There is mild tricuspid valve regurgitation. 10. No pulmonary hypertension, estimated pulmonary arterial systolic pressure is 22 mmHg. Left Ventricle E/e' 12 is mildly elevated. Left ventricular chamber dimension is normal. Left ventricular systolic function is normal, estimated at 60-65. The left ventricular diastolic function is grade I diastolic dysfunction. Right Ventricle Right ventricular chamber dimension is normal. Right ventricular systolic function is normal and with normal TAPSE 2.1 cm. Left Atria Left atrial chamber dimension is moderately enlarged. Right Atria Right atrial chamber dimension is normal. Aortic Valve The aortic valve is trileaflet. There is mild aortic valve sclerosis. There is no aortic valve stenosis. There is no aortic valve regurgitation. Pulmonic Valve There is no pulmonic regurgitation. Mitral Valve There is no mitral valve stenosis. There is mild mitral valve regurgitation. Tricuspid Valve There is mild tricuspid valve regurgitation. No pulmonary hypertension, estimated pulmonary arterial systolic pressure is 22 mmHg. Pericardium/Pleural There is no pericardial effusion. Inferior Vena Cava Normal inferior vena cava with >50% collapse upon inspiration consistent with normal right atrial pressure, 5 mmHg. Aorta The aortic root size at the sinus of Valsalva is normal. Left Ventricular Outflow Tract Name Value Normal LVOT 2D LVOT Diameter 2.0 cm LVOT Doppler LVOT Peak Velocity 95 cm/s LVOT Peak Gradient 4 mmHg LVOT Mean Gradient 2 mmHg LVOT VTI 23 cm LVOT VTI/AV VTI Ratio 0.7 LVOT Stroke Volume 73 ml LVOT CO 3.7 l/min LVOT CI 2.0 l/min/m2 Pulmonic Valve Name Value Normal RVOT Doppler RVOT Peak Velocity 59 cm/s RVOT Peak Gradient 1 mmHg PV Doppler PV Peak Velocity 103 cm/s PV Peak Gradient 4 mmHg Mitral Valve Name Value Normal MV Diastolic Function MV E Peak Velocity 53 cm/s MV A Peak Velocity 64 cm/s MV E/A 0.8 MV Decel Time (PW) 505 ms MV Annular TDI MV E/e' (Septal) 13.4 MV E/e' (Lateral) 12.0 MV E/e' (Average) 12.7 Tricuspid Valve Name Value Normal TV Regurgitation Doppler TR Peak Velocity 209 cm/s TR Peak Gradient 17 mmHg Estimated PAP/RSVP RA Pressure 5 mmHg <=5 PA Systolic Pressure 22 mmHg <36 RV Systolic Pressure 22 mmHg <36 TV Annular TDI TV Lateral Bia s' Velocity 11.8 cm/s >=9.5 Aorta Name Value Normal Ascending Aorta Ao Root Diameter (MM) 3.0 cm Ao Root Diam Index (MM) 1.6 cm/m2 Aortic Valve Name Value Normal AV Doppler AV Peak Velocity 156 cm/s AV Peak Gradient 10 mmHg AV Mean Gradient 5 mmHg AV VTI 34 cm AV Area (Cont Eq VTI) 2.1 cm2 >=3.0 AV Area (Cont Eq Damion) 1.9 cm2 AV DI (Damion) 0.61 AV Regurgitation 2D LVOT Area 3.1 cm2 Ventricles Name Value Normal LV Dimensions 2D/MM IVS Diastolic Thickness (2D) 1.0 cm 0.6-1.0 LVID Diastole (2D) 5.3 cm 4.2-5.8 LVIW Diastolic Thickness (2D) 0.9 cm 0.6-1.0 LVID Systole (2D) 3.4 cm 2.5-4.0 LVOT Diameter 2.0 cm LV Mass (2D Cubed) 194.45 g 88.00-224.00 LV Mass Index (2D Cubed) 103 g/m2 49-115 Relative Wall Thickness (2D) 0.35 <=0.42 LV Fractional Shortening/Ejection Fraction 2D/MM LV Fractional Shortening (2D) 35 % 25-43 LV EF (2D Teichholz) 63 % LV Diastolic Volume (4C MOD) 93 ml LV EF (4C MOD) 66 % LV Diastolic Volume (2C MOD) 71 ml LV EF (2C MOD) 56 % LV Diastolic Volume (BP MOD) 83 ml 62-150 LV Diastolic Volume Index (BP MOD) 44 ml/m2 34-74 LV Systolic Volume (BP MOD) 32 ml 21-61 LV Systolic Volume Index (BP MOD) 17 ml/m2 11-31 LV EF (BP MOD) 61 % 52-72 LV Diastolic Length (4C) 7.5 cm LV Systolic Length (4C) 6.1 cm LV Stroke Volume (4C MOD) 61 ml Atria Name Value Normal LA Dimensions LA Dimension (MM) 4.8 cm 3.0-4.0 LA Volume (4C A-L) 101 ml LA Volume (BP A-L) 94 ml RA Dimensions RA Systolic Major [place] Length (4C) 5.5 cm 2.1-2.7 RA Area (4C) 14.3 cm2 <=18.0 Report Signatures
== END 2025-07-01 07:48 | disposition home or self-care (01) ==
DX: I51.89 Other ill-defined heart diseases (principal); I35.8 Other nonrheumatic aortic valve disorders; I08.1 Rheumatic disorders of both mitral and tricuspid valves
CPT/HCPCS: 93306

== ENCOUNTER 2025-08-05 09:47 | Day surgery (SDC) | payer MEDICARE, SELFPAY ==
[2025-07-19 11:15] VITALS: BMI 24.3
--- OUTSIDE RECORDS SUMMARY | 2025-07-22 02:04 | XMS_ITS | Clinical Summary ---
Author Organization [facility] Address [facility] [place] [address] Care Team Providers Care Pumper Gauger Apprentice Name Role Phone Troy Romeo DO Primary Care Provider [phone] Encounters Date Type Department Care Team Description 07/03/2025 8:05 AM ASPHALT ROLLER OPERATOR - 07/03/2025 11:59 PM ASPHALT ROLLER OPERATOR Hospital Encounter [facility] CT [address] [place], [place] [id number] Umberto Gary MD Discharge Disposition: Home or Self Care (Routine Discharge) 07/03/2025 Travel from Last 3 Months Social History Tobacco Use Types Packs/Day Years Used Date Smoking Tobacco: Never Assessed Sex and Gender Information Value Date Recorded Sex Assigned at Not on file Legal Sex Male 10:29 AM ASPHALT ROLLER OPERATOR Gender Identity Not on file Sexual Orientation Not on file Plan of Treatment Health Maintenance Due Date Last Done Comments Hepatitis C 1963 Pneumococcal Vaccine: 50+ Years (2 of 2 - PCV) 10/14/2014 10/14/2013 RSV Immunization or 60+ Years (1 - 1-dose 75+ series) 2021 COVID-19 Vaccine ( season) 2025 06/13/2024, 08/11/2023, 07/19/2022, Additional history exists DTaP, Tdap and Td Vaccines (2 - Td or Tdap) 07/02/2029 07/02/2019 Zoster Vaccines Completed 10/25/2023, 05/24/2023 Influenza Adult Completed 06/03/2025, 05/23, 05/24/2023, Additional history exists Hepatitis A Vaccines Aged Out No long [...] on patient's age to complete this topic Procedures Procedure Name Priority Date/Time Associated Diagnosis Comments CT HEART SCREEN CALCIUM SCORE PROMO Routine 07/03/2025 8:41 AM ASPHALT ROLLER OPERATOR Screening, ischemic heart disease from Last 3 Months Results * CT HEART SCREEN CALCIUM SCORE PROMO (07/03/2025 8:41 AM ASPHALT ROLLER OPERATOR) Anatomical Region Laterality Modality Chest Computed Tomogra phy 07/03/2025 8:47 AM ASPHALT ROLLER OPERATOR Impressions 07/03/2025 8:48 AM ASPHALT ROLLER OPERATOR =====IMPRESSION:===== Total Score: 149 Moderate plaque, moderately high risk, moderate likelihood of significant stenosis (>50%). Ordered By: UMBERTO GARY Interpreted By: Brandon Sales MD, 07/03/2025 8:47 AM Narrative 07/03/2025 8:48 AM ASPHALT ROLLER OPERATOR [address] [address] EXAMINATION: Multislice Helical CT Coronary Calcium Scoring REASON FOR EXAM: Screening for heart disease COMPARISON: None TECHNIQUE: Multislice helical CT images of the proximal coronary arteries with a computer generated calcification score. A dose lowering technique was used for this procedure, which may include, but is not limited to, dose reduction technique, automated exposure control, iterative reconstruction, ALARA (As Low As Reasonably Achievable), or Image Gently techniques. Results: Left main: 0 LAD: 95 Circumflex: 48 Right coronary: 6 Total Score: 149 Comments: There is no mediastinal adenopathy, and there are no pulmonary nodules in the visualized portions of the chest. Calcium score guidelines: Total Score* Calcium Plaque [place] *Risk *Probability of significant CAD 0 No Plaque Very Low Very unlikely 1-10 Minimal Plaque Low Unlikely 11-100 Mild Plaque Moderate Low likelihood of significant stenosis <50% 101-400 Moderate Plaque Moderately High Moderate likelihood of significant stenosis (>50%) Over 400 Extensive Plaque High High likelihood of significant stenosis (>50%) The amount of coronary artery calcification correlates with the severity of coronary atherosclerosis and the probability of future significant event. Calcification is not site specific for stenosis and does not identify non-calcified atherosclerotic plaque, but rather indicates the extent of atherosclerosis in the coronary arteries overall. The score may be used as an indicator for risk factor modification or additional cardiac testing. Significant change in calcium score over time may be indicative of subsequent disease development or useful as a benchmark to assess preventative programs. Procedure Note Brandon Sales MD - 07/03/[address] [address] EXAMINATION: Multislice Helical CT Coronary Calcium Scoring REASON FOR EXAM: Screening for heart disease COMPARISON: None TECHNIQUE: Multislice helical CT images of the proximal coronary arterieswith a computer generated calcification score. A dose lowering techniquewas used for this procedure, which may include, but is not limited to,dose reduction technique, automated exposure control, iterativereconstruction, ALARA (As Low As Reasonably Achievable), or Image Gentlytechniques. Results: Left main: 0 LAD: 95 Circumflex: 48 Right coronary: 6 Total Score: 149 Comments: There is no mediastinal adenopathy, and there are no pulmonarynodules in the visualized portions of the chest. Calcium score guidelines: Total Score* Calcium Plaque [place] *Risk *Probability ofsignificant CAD 0 No Plaque Very LowVery unlikely 1-10 Minimal Plaque LowUnlikely 11-100 Mild Plaque ModerateLow likelihood of significant stenosis <50% 101-400 Moderate Plaque Moderately HighModerate likelihood of significant stenosis (>50%) Over 400 Extensive Plaque HighHigh likelihood of significant stenosis (>50%) The amount of coronary artery calcification correlates with the severityof coronary atherosclerosis and the probability of future significantevent. Calcification is not site specific for stenosis and does notidentify non-calcified atherosclerotic plaque, but rather indicates theextent of atherosclerosis in the coronary arteries overall. The score may be used as an indicator for risk factor modification oradditional cardiac testing. Significant change in calcium score over timemay be indicative of subsequent disease development or useful as abenchmark to assess preventative programs. =====IMPRESSION:===== Total Score: 149 Moderate plaque, moderately high risk, moderatelikelihood of significant stenosis (>50%). Ordered By: UMBERTO GARY Interpreted By: Brandon Sales MD, 07/03/2025 8:47 AM us Umberto Gary MD CT Final Res ult from Last 3 Months Insurance [facility] Care Teams Pumper Gauger Apprentice Relationship Specialty Start Date End Date Troy Romeo DO [address] [place] [address] PCP - General INTERNAL MEDICINE 06/27/25
--- OUTSIDE RECORDS SUMMARY | 2025-07-22 02:04 | XMS_ITS | Clinical Summary ---
Author Organization [facility] [address] [facility] [address] Address [address] [place] [address] Care Team Providers Care Sharepoint Manager Name Role Phone Troy Romeo DO Primary Care Provider [phone] Encounters Date Type Department Care Team Description 07/09/2025 Telephone [facility] Cardiology [address] [place] [address] Juanpablo Alex MD [facility] prior auth 06/26/2025 Telephone [facility] Medical [facility] Cardiology [address] [facility] [address] [place] [address] Juanpablo Alex MD from Last [...] Plan of Treatment Not on file Insurance [facility] MEDICARE ADVANTAGE Care Teams Sharepoint Manager Relationship Specialty Start Date End Date Troy Romeo DO PCP - General Internal Medicine 05/26/17
--- OUTSIDE RECORDS SUMMARY | 2025-07-22 02:04 | XMS_ITS | Clinical Summary ---
Author Organization [facility] Address [address] [facility] [place] [address] Care Team Providers Care Rust Proofer Name Role Phone Troy Romeo DO Primary Care Provider [phone] Source Comments [facility],non-owned Affiliates and Associated Physician Practices is amultiple site organization consisting of ambulatory clinics and hospital sitesin [place], [place], [place] and [place]. This disclosure is being madepursuant to the Care Everywhere program and may not contain all information available regarding this patient. Last updated 18.[facility] Allergies Active Allergy Reactions Criticality Noted Date [...] on file Legal Sex Male 5:30 PM TRUCK BRACER Gender Identity Not on file Sexual Orientation [...] DEPRESSION SCREENING 08/22/2024 COVID-19 VACCINE ( - 2024-2 6 season) 2025 INFLUENZA VACCINE (#1) 2025 HEPATITIS [...] patient's age to complete this topic Insurance [facility] MEDICARE ADV Care Teams Rust Proofer Relationship Specialty Start Date End Date Troy Romeo DO PCP - General 03/08/16
--- OUTSIDE RECORDS SUMMARY | 2025-07-22 02:04 | XMS_ITS | Clinical Summary ---
Author Organization [facility] Sharron Coppolashabbir Address [address] [place] [place] [address] Care Team Providers Care Lithographic Press Operator Apprentice Name Role Phone Troy Romeo DO [...] Comments Blood Pressure 126/71 10/30/2021 9:33 AM LITHOGRAPHER HELPER Pulse 56 10/30/2021 9:33 AM LITHOGRAPHER HELPER Temperature 36.2 C (97.2 F) 10/30/2021 9:33 AM LITHOGRAPHER HELPER Respiratory Rate - - Oxygen Saturation 98% 10/30/2021 9:33 AM LITHOGRAPHER HELPER Inhaled Oxygen Concentration - - Weight 67.5 kg (148 lb 12.8 oz) 10/30/2021 9:33 AM LITHOGRAPHER HELPER Height 175.3 cm (5' 9) 10/30/2021 9:33 AM LITHOGRAPHER HELPER Body Mass Index 21.97 10/30/2021 9:33 AM LITHOGRAPHER HELPER Plan of Treatment Health Maintenance Due Date Last Done Comments DTAP/TDAP/TD VACCINES (1 - Tdap) 1964 PNEUMOCOCCAL VACCINE 50+ YEARS (1 of 1 - PCV) 05/25/19 96 ZOSTER VACCINE (1 of 2) 1996 RSV VACCINE (60+ or ) (1 - 1-dose 75+ series) 2021 INFLUENZA VACCINE (#1) 2025 Insurance [facility] [id number] Member Subscriber Plan / Payer (Ef fective 2021-Present) Name:Liu Bocanegra Relation to Subscriber:Self Name:Liu Bocanegra Payer ID:[id number] (NAIC) Type:HMO Address: [place] [id number] Care Teams Lithographic Press Operator Apprentice Relationship Specialty Start Date End Date Troy Romeo DO [address] [address] PCP - General Internal Medicine 04/07/21
[2025-08-02 13:32] VITALS: BMI 24.3
[2025-08-05] VITALS (25 sets, daily range): BP systolic 99–127; BP diastolic 48–64; PULSE 47–56; RESP 12–19; TEMP 36.6; O2SAT 97–98; BMI 23.8
[2025-08-05 10:15] LABS: Hematocrit 42.0 % (42.0-52.0); Hemoglobin 13.7 g/dL (14.0-18.0); Immature Granulocyte Percent A 0.4 % (0-0.5); Lymphocytes Absolute Auto 1.13 K/mm3 (0.9-3.2); Mean Corpuscular HGB Conc 32.6 g/dl (32-36); Mean Corpuscular Hemoglobin 31.8 pg (26-34); Mean Corpuscular Volume 97.4 fl (80-100); Nucleated Red Blood Cells Absolute Auto 0.000 K/mm3 (0.0-0.012); Nucleated Red Blood Cells Perc 0.0 % (0.0-0.2); Platelet Count Result 132 k/mm3 (150-375); Red Blood Count 4.31 M/mm3 (4.6-6.20); White Blood Count 5.5 K/mm3 (4.5-10.0)
[2025-08-05 10:39] LABS: Anion Gap 5 mmol/L (4-12); Blood Urea Nitrogen 25 mg/dL (9-20); Calcium 9.5 mg/dL (8.4-10.2); Carbon Dioxide 28 mmol/L (22-30); Chloride 106 mmol/L (98-107); Estimated CRCL calculation 43 ml/min; Estimated Glomerular Filt Rate 59; Glucose 94 mg/dL (65-110); Potassium 4.1 mmol/L (3.4-5.0); Sodium 139 mmol/L (137-145)
--- NOTE | 2025-08-05 12:25 | WPDHPUPDATE1 ---
History and Physical Update Update Date/Time: 08/05/25 12:25 History and Physical has been reviewed, including an updated exam of the patient. There are NO changes in the patient's condition. Risks, benefits, and alternatives have been discussed and questions answered. Patient agrees to proceed with procedure.
--- NOTE | 2025-08-05 12:25 | WPDMODSED ---
Moderate Sedation Note-Pt Data Patient Data Allergies Allergy/AdvReac Type Severity Reaction Status Date / Time cephalexin Allergy Unknown Rash Verified 08/05/25 10:01 Penicillins Allergy RASH Verified 08/05/25 10:01 Home Medications ?Medication ?Instructions ?Recorded ?Confirmed ?Type multivitamin 1 tablet PO DAILY 07/02/19 08/05/25 History melatonin 5 mg capsule 5 mg PO .PRN 03/10/21 08/05/25 History omega 6-pim-gri-fish oil 300 1 cap PO .Every other day 03/12/22 08/05/25 History mg-1,000 mg capsule (Fish Oil) mecobalamin (vitamin B12) 500 mcg 500 mcg PO DAILY 05/12/23 08/05/25 History chewable tablet cholecalciferol (vitamin D3) 125 125 mcg PO DAILY 05/22/24 08/05/25 History mcg (5,000 unit) capsule aspirin 81 mg chewable tablet 81 mg PO DAILY 06/19/25 08/05/25 History atorvastatin 10 mg tablet (Lipitor) 10 mg PO DAILY #30 tabs 06/19/25 08/05/25 Rx Sedation/Anesthesia: No previous sedation/anesthesia problems (including family history). [facility] Past Medical History Medical History Thrombocytopenia Anemia Colorectal polyp detected on colonoscopy Surgical History Surgical History History of hernia repair x 2 Family History Family History Sibling Patient's sister is in good health Patient's brother is in good health Mother Cerebrovascular accident Father History of heart bypass surgery Arteriolosclerosis Social History Social History Social History: Caffeine- none Smoking status: Never smoker Tobacco type: cigarettes Second hand tobacco smoke exposure: No Smoking end date: 08/22/73 Alcohol intake: current Alcohol use details: rarely Substance use: never Substance use type: does not use Lack of Transportation: No Lack of Food: Never True Current Housing: I Have Housing Concerned About Future Housing: No Difficulty Paying Gas/Electric Bills: No Difficulty Paying for Meds: No Currently Unemployed: No Education: Decline to Answer Difficulty w/ Childcare or Family Care: Decline to Answer Living arrangements: with family Gender identity (if verbalized by the patient): Male Sexual Orientation (if Verbalized by the Patient): Straight or Heterosexual Spiritual care concerns: No Mod Sed Physical Exam Physical Exam Pre Procedural Exam: Normal: Lungs, Heart Size, Heart Rate and Heart Rhythm Hours since solid foods: 12 Hours since liquid intake: 12 Mallampati Classification: class II Internal Medicine - PN: Obj Da Vital Signs Vital Signs: Vital Signs - 24 hr 08/05/25 10:03 Temperature 36.6 C Pulse Rate 51 L Respiratory Rate 16 Blood Pressure 124/56 L Pulse Oximetry 98 Oxygen Delivery Room Air Labs 08/05/25 10:11 08/05/25 10:11 Labs: Laboratory Results - last 24 hr 08/05/25 10:11 WBC 5.5 RBC 4.31 L Hgb 13.7 L Hct 42.0 MCV 97.4 MCH 31.8 MCHC 32.6 RDW 12.9 Plt Count 132 L MPV 9.9 Immature Gran % (Auto) 0.4 Neut % (Auto) 68.7 Lymph % (Auto) 20.7 [place] % (Auto) 8.3 Eos % (Auto) 1.7 Baso % (Auto) 0.2 Lymph # (Auto) 1.13 [place] # (Auto) 0.5 Eos # (Auto) 0.1 Baso # (Auto) 0.0 Abs Immat Gran (auto) 0.02 Absolute Neuts (auto) 3.8 Absolute Nucleated RBC 0.000 Nucleated RBC % 0.0 Sodium 139 Potassium 4.1 Chloride 106 Carbon Dioxide 28 Anion Gap 5 BUN 25 H Creatinine 1.19 Estim Creat Clear Calc 43 Estimated GFR 59 Glucose 94 Calcium 9.5 ASA Classification/Sedation ASA Classification/Sedation ASA Class: III Emergent: No Risks: Risks, benefits and alternatives explained and patient/family accepted plan for sedation. Patient re-evaluated immediately prior to sedation.
--- NOTE | 2025-08-05 13:19 | WPDCARDPROC ---
Cardiac Cath Procedure Note Date of procedure:: 08/05/25 Performing physician:: CATHETERIZATION LABORATORY REPORT Procedure Date:08/05/2025 Referring Physician: Dr. Hernandez Anesthesia: Versed and Fentanyl were ordered and given in my presence at 1230, procedure ended at 1312. Supervision of nurse, Jolynn Montoya monitored moderate sedation with 2mg Versed and 50mcg Fentanyl was provided for 42 minutes. Pre-op Diagnosis: Abnormal stress test Post-op Diagnosis: Abnormal stress test Procedure(s): Left heart catheterization with coronary angiography Percutaneous coronary intervention Access Site: Right radial artery Brief History and Clinical Indications: All risks, benefits and alternatives to left heart catheterization with or without percutaneous coronary intervention was discussed at length with the patient. Risk of complications including but not limited to bleeding, infection, arrhythmia, stroke, worsening kidney function, blood loss, groin hematoma, limb loss, emergency coronary artery bypass grafting, and even were discussed with the patient and all questions were answered. The patient understood and wished to proceed. 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 Findings: LEFT HEART CATHETERIZATION FINDINGS: 1. Left main: The left main coronary artery is widely patent without any significant obstructive disease. 2. Left anterior descending: The LAD in its proximal to mid body has 20-30% calcific stenosis. The remainder of the vessel and its diagonal branches have luminal irregularities. 3. Left circumflex: The left circumflex artery provides 3 OM branches. The proximal left circumflex has a subtotal 99% stenosis. 4. Right coronary artery: The RCA is a large dominant vessel that is occluded in its proximal body with robust [id number] collaterals. 5. Left ventricle: A. End-diastolic pressure 16 mmHg. B. LV gram deferred. C. No significant gradient across aortic valve on catheter pullback. 6. Opening AO pressure 92/45 and closing AO pressure 109/51 Description of Procedure: Informed consent signed and placed in the chart. Patient transferred to manager cath lab room. Prepped and draped in usual sterile fashion. 2% lidocaine injected subcutaneously in right wrist area. 22-gauge venipuncture catheter used to access the right radial artery with the Seldinger technique. 6-FR slender sheath placed in right radial artery. Nitroglycerin 200mcg, Verapamil 2.5mg, and Heparin 3000U was given intraarterial through the sheath. J wire advanced under fluoroscopy. 5F Ultra diagnostic catheter crossed the aortic valve for LVEDP and aortic valve gradients. After pull back, it was used to engage the left main coronary artery and right coronary artery. Multiple orthogonal angiogram obtained and reviewed Procedure Description for PCI: Heparin was used for anticoagulation (ACT maintained above 250) Patient loaded with heparin at 70 units/kg. 6F EBU 3.0 guide catheter was used to intubate the left main coronary artery. 0.014 Runthrough coronary wire was passed in to the distal left circumflex. The lesion was pre-dilated with a 1.5 x 10mm balloon inflated to high LUC followed by 2.0 x 10mm balloon inflated to high LUC. A 3.0 x 15mm [place] ENRIQUE was successfully deployed into proximal left circumflex with excellent results. There is a lesion that is more proximal to the stent that was initially thought to be wire-bias however after nitroglycerin 300mcg IC and wire removal, it was still present. This lesion was stented with a 3.0 x 15mm [place] ENRIQUE overlapping the first stent. The stent balloon was used to post-dilate the overlappred region to 15atm. On drip coronary grooming was then removed under fluoroscopy. Final angiograms demonstrated excellent results. Pre-procedure - FLIP 3 flow Post-procedure - FLIP 3 flow No angiographic complications identified. Hemostasis was achieved with TR band. Assessment: Successful PCI to the proximal left circumflex with overlapping 3.0 x 15mm [place] ENRIQUE and 3.0 x 15mm [place] ENRIQUE to 15atm with excellent angiographic results. IVUS could not pass the acute angle of the left circumflex origin. Post Operative Condition: Stable No significant blood loss Disposition: Home Plan: ASA 81 mg p.o. daily indefinitely. Plavix 75 mg p.o. daily for year. The above findings were discussed with the referring physician. Continue aggressive medical therapy and risk factor modification. Juanpablo Alex Interventional Cardiology
[2025-08-05] MEDS: SODIUM CHLORIDE 0.9% IV 1,000 ML 125 ML IV CONT (15:19)
== END 2025-08-05 19:16 | disposition home or self-care (01) ==
PROVIDERS: Visit Provider Internal Medicine
PROC: 4A023N7 Measurement of Cardiac Sampling and Pressure, Left Heart, Percutaneous Approach (ICD-10-PCS; CPT 93452; principal; 2025-08-05 11:30)
PROC: 027034Z Dilation of Coronary Artery, One Artery with Drug-eluting Intraluminal Device, Percutaneous Approach (ICD-10-PCS; CPT 92928; 2025-08-05 11:30)
DX: I25.10 Atherosclerotic heart disease of native coronary artery without angina pectoris (principal); I25.84 Coronary atherosclerosis due to calcified coronary lesion; R94.39 Abnormal result of other cardiovascular function study
CPT/HCPCS: 36415; 80048; 85025; 92978; 93458; A9270; C1725; C1753; C1769; C1874; C1887; C1894; C9600; J1644; J2003; J2250; J2305; J3010; J7030; J7040